=== PATIENT | female | born 1955 | race Caucasian/White ===

== ENCOUNTER 2024-02-18 19:07 | Emergency (ER) | payer MEDICARE, SELFPAY ==
[2024-02-18 19:08] VITALS: BP 140/95; PULSE 111; RESP 20; TEMP 36.7; O2SAT 100
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
--- NOTE | 2024-02-18 20:18 | PC.NURSE ---
Pt refusing CT. EDP Dr. Santiago made aware. Pt on way to scrap picker pt.
--- NOTE | 2024-02-18 20:25 | PC.NURSE ---
pt seen by supervisor frame sample and pattern getting into red truck. pt was at intake desk and could not verbalize what room she was trying to go to, a patient name, etc. Pt then said i want to talk to an emergency and turned and walked out the front door. Pt appears intoxicated but ambulatory to [employer].
== END 2024-02-18 20:57 | disposition left against medical advice (07) ==
PROVIDERS: Emergency Provider Preventive Medicine Aerospace Medicine
DX: R04.0 Epistaxis (principal); F10.920 Alcohol use, unspecified with intoxication, uncomplicated; W18.30XA Fall on same level, unspecified, initial encounter
CPT/HCPCS: 99283

== ENCOUNTER 2024-04-23 16:44 | Emergency (ER) | payer OTHER, MEDICARE, SELFPAY ==
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
[2024-04-23 16:47] VITALS: BP 130/78; PULSE 114; RESP 28; TEMP 36.9; O2SAT 94
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
--- NOTE | 2024-04-23 17:05 | PC.NURSE ---
Pt stated to RN that she refuses to have C Collar placed, refused to get IV, and refuses to get any labs or scans. EDP informed of pt refusal to potential interventions
--- NOTE | 2024-04-23 17:57 | PC.NURSE ---
Pt sitting at edge of bed. RN reminded pt that she needed to stay in bed. Pt rolled eyes and stated I'm not going to fall. RN tried to educate pt that she is a fall risk. CT came to get pt. retail maintenance technician and RN assisted pt to wheelchair. Bed alarm placed.
[2024-04-23 18:11] VITALS: BP 137/91; PULSE 105; RESP 24; O2SAT 94
[2024-04-23 19:07] VITALS: BP 150/102; PULSE 109; RESP 18; TEMP 36.8; O2SAT 95
== END 2024-04-23 19:20 | disposition home or self-care (01) ==
PROVIDERS: Emergency Provider Registered Nurse
DX: S09.90XA Unspecified injury of head, initial encounter (principal); V89.2XXA Person injured in unspecified motor-vehicle accident, traffic, initial encounter
CPT/HCPCS: 70450; 72125; 99284